=== PATIENT | male | born 1990 | race Caucasian/White ===

== ENCOUNTER 2020-09-01 22:00 | Emergency (ER) | payer BC ==
[2020-09-01 23:02] VITALS: BP 154/96
== END 2020-09-01 23:00 | disposition home or self-care (01) | DRG 605 ==
LOC: ED 22:00
PROC: 0HQFXZZ Repair Right Hand Skin, External Approach (ICD-10-PCS; principal; 2020-09-01)
DX: S61.212A Laceration without foreign body of right middle finger without damage to nail, initial encounter (principal); W26.8XXA Contact with other sharp object(s), not elsewhere classified, initial encounter; Y93.89 Activity, other specified; Y92.009 Unspecified place in unspecified non-institutional (private) residence as the place of occurrence of the external cause